=== PATIENT | male | born 1980 | race African-American/Black ===

== ENCOUNTER 2016-12-24 03:39 | Emergency (ER) | payer MEDICAID ==
[~2016-12-24] VITALS: Ht 185.4 cm; Wt 73.0 kg
[2016-12-24] MEDS ORDERED: MORPHINE SULFATE 4 MG/ML CPJ (NOT FOR IM USE) IV STA (04:01)
[2016-12-24] MEDS ORDERED: ONDANSETRON HCL 4MG/2ML VIAL IV STA (04:01)
[2016-12-24] MEDS ORDERED: SODIUM CHLORIDE 0.9% 1,000 ML IV ONE ×3 (04:01→06:06)
[2016-12-24] MEDS ORDERED: TETANUS, DIPHTHERIA, PERTUSSIS VAC/PF 0.5ML (>7YR OLD) IM ONE (04:15)
[2016-12-24] MEDS ORDERED: CEFAZOLIN 1000MG PREMIX 50 ML IV ONE (04:15)
[2016-12-24 04:39] LABS: BASOPHILS % 0.8 % (0.0-2.0); EOSINOPHILS % 1.2 % (0.0-5.0); HEMATOCRIT. 37.5 % (42.0-52.0); HEMOGLOBIN. 12.7 g/dL (14.0-18.0); LYMPHOCYTES % 49.5 % (20.0-50.0); MEAN CORPUSCULAR HEMOGLOBIN 32.3 pg (28.0-32.0); MEAN CORPUSCULAR VOLUME 95.7 fL (80.0-94.0); MEAN PLATELET VOLUME 8.6 fl (7.4-10.4); MONOCYTES % 7.6 % (2.0-8.0); NEUTROPHILS % 40.9 % (40.0-76.0); PLATELET 278 x1000/uL (130-400); RED BLOOD CELL COUNT 3.91 mill/uL (4.7-6.1); RED CELL DISTRIBUTION WIDTH 13.4 % (11.6-14.6)
[2016-12-24 04:50] LABS: CARBON DIOXIDE 23 mEq/L (21-32); CHLORIDE 104 mEq/L (98-107)
[2016-12-24] MEDS ORDERED: MORPHINE SULFATE 4 MG/ML CPJ (NOT FOR IM USE) IV ONE (06:00)
[2016-12-24 09:04] VITALS: BP 113/54
[2016-12-24] MEDS ORDERED: SODIUM CHLORIDE 0.9% 10ML VIAL ONE (09:29)
[2016-12-24] MEDS ORDERED: IOHEXOL-300 100 ML BOTTLE ONE (09:29)
== END 2016-12-24 09:17 | disposition short-term general hospital (02) ==
LOC: ER 03:39
DX: M79.605 Pain in left leg (principal); M79.604 Pain in right leg; F17.200 Nicotine dependence, unspecified, uncomplicated; F12.10 Cannabis abuse, uncomplicated; Z98.890 Other specified postprocedural states
CPT/HCPCS: 36415; 71010; 72170; 73551; 74177; 80048; 82962; 85025; 86850; 86900; 86901; 90471; 90715; 96361; 96365; 96375; 96376; 99291; A4216; J0690; J2270; J2405; J7030; Q9967; Z7610

== ENCOUNTER 2024-05-20 22:13 | Emergency (ER) | payer MEDICAID ==
[~2024-05-20] VITALS: Ht 185.4 cm; Wt 84.0 kg
[2024-05-20 22:17] VITALS: O2SAT 100
[2024-05-20 23:25] VITALS: BP 107/70; PULSE 102; RESP 16; TEMP 98.1
[2024-05-21] MEDS: IBUPROFEN 600MG TABLET PO ONE (03:13)
[2024-05-21] MEDS: BACITRACIN ZINC OINT UDPKT TOP ONE (03:14)
[2024-05-21] MEDS: TETANUS, DIPHTHERIA, PERTUSSIS VAC/PF 0.5ML (>10YR OLD) IM ONE (03:28)
[2024-05-21] MEDS: LIDOCAINE HCL/PF 1% 10 MG/ML 5ML VIAL INFIL ONE (04:50)
[2024-05-21] MEDS ORDERED: IBUP-2029 MT (04:54)
[2024-05-21] MEDS ORDERED: BO1 TP (04:54)
== END 2024-05-21 05:45 | disposition home or self-care (01) ==
LOC: ER 22:21
DX: S51.811A Laceration without foreign body of right forearm, initial encounter (principal); W45.8XXA Other foreign body or object entering through skin, initial encounter; Y93.89 Activity, other specified; Y92.89 Other specified places as the place of occurrence of the external cause; Y99.8 Other external cause status
CPT/HCPCS: 99283; 12002; 90715; 90471; J3490

== ENCOUNTER 2025-01-23 16:00 | Emergency (ER) | payer MEDICAID ==
[~2025-01-23] VITALS: Ht 182.9 cm; Wt 81.0 kg
[~2025-01-23 16:00] MED LIST: BO1 TP; IBUP-2029 MT
[2025-01-23 16:10] VITALS: O2SAT 96
[2025-01-23 17:24] VITALS: BP 110/73; PULSE 74; RESP 16; TEMP 37; O2SAT 99
== END 2025-01-23 17:27 | disposition home or self-care (01) ==
LOC: ER 16:06
DX: Z00.00 Encounter for general adult medical examination without abnormal findings (principal); F12.10 Cannabis abuse, uncomplicated
CPT/HCPCS: 99282